=== PATIENT | male | born 1945 | race Caucasian/White ===

== ENCOUNTER 2024-03-17 20:24 | Emergency (ER) | payer OTHER ==
[2024-03-17 20:41] VITALS: BP 181/79; PULSE 82
== END 2024-03-17 21:24 | disposition home or self-care (01) ==
LOC: JP.ED 20:24
DX: S00.261A Insect bite (nonvenomous) of right eyelid and periocular area, initial encounter (principal); E78.00 Pure hypercholesterolemia, unspecified; E11.42 Type 2 diabetes mellitus with diabetic polyneuropathy; Z79.899 Other long term (current) drug therapy; Z79.82 Long term (current) use of aspirin; Z91.041 Radiographic dye allergy status; W57.XXXA Bitten or stung by nonvenomous insect and other nonvenomous arthropods, initial encounter
CPT/HCPCS: 99282